=== PATIENT | female | born 1990 | race Caucasian/White ===

== ENCOUNTER 2020-09-19 18:14 | Emergency (ER) | payer MEDICAID ==
[~2020-09-19] VITALS: Ht 162.6 cm; Wt 100.0 kg
[~2020-09-19 18:14] MED LIST: ABILIFY 10MG TA10 MG PO; ABILIFY20 MG; ABILIFY20 MG PO; CELEXA40 MG PO; COGENTIN; DEPAKENE250 MG PO; DEPAKOTE ER 25250 MG PO; DEPAKOTE500 MG PO; FANAPT4 MG PO; GEODON 40MG40 MG PO; INVEGA PO; INVEGA9 MG IM; KLONOPIN 0.5MG0.5 MG PO; KLONOPIN WAFER0.5 MG PO; LAMICTAL 100MG100 MG PO; LAMICTAL200 MG PO; LATUDA80 MG PO; LEXAPRO 5MG5 MG; LEXAPRO20 MG PO; MINIPRESS 1M1 MG/CAP PO; MIRTAZAPINE7.5 MG; PRISTIQ 50 MG T50 MG PO; PROZAC 10MG10 MG PO; PROZAC 20MG20 MG PO; REVIA 50MG TABL50 MG PO; RISPERDAL; SEROQUEL 2525 MG/TAB PO; SEROQUEL300 MG PO; TYLENOL COLD &240 M1; UNABLE; ZOLOFT 25MG25 MG; ZOLOFT100 MG PO; ZYPREXA 5MG5 MG PO; ZYPREXA ZYDIS5 M1 PO; ZYPREXA10 MG PO; [UNRECOGNIZED DRUG - OTHER] PO; symbalta
[2020-09-19 18:23] VITALS: TEMP 98.3
[2020-09-19] MEDS ORDERED: CEPHALEXIN500 M1 PO (19:17)
[2020-09-19 20:02] VITALS: BP 129/78; PULSE 89
== END 2020-09-19 20:05 | disposition home or self-care (01) ==
LOC: COL.ER 18:14
DX: B35.1 Tinea unguium (principal); L03.032 Cellulitis of left toe; F32.9 Major depressive disorder, single episode, unspecified; Z79.899 Other long term (current) drug therapy

== ENCOUNTER 2020-10-28 00:27 | Emergency (ER) | payer MEDICAID ==
[~2020-10-28] VITALS: Ht 162.6 cm; Wt 90.9 kg
[~2020-10-28 00:27] MED LIST changes: +CEPHALEXIN500 M1 PO
[2020-10-28 00:46] VITALS: TEMP 97
[2020-10-28 01:07] LABS: COLLECTION METHOD CLEAN CATCH
[2020-10-28 01:19] LABS: MUCOUS Present /lpf; PH 5 (5-8); SQUAMOUS EPITHELIAL 0-2 /hpf; URINE APPEARANCE Hazy; URINE BACTERIA Rare /hpf; URINE BILIRUBIN Negative (NEGATIVE); URINE BLOOD Negative (NEGATIVE); URINE CALCIUM OXALATE CRYSTAL Present /hpf; URINE COLOR Yellow; URINE GLUCOSE Negative (NEGATIVE); URINE KETONE 1+ (NEGATIVE); URINE LEUKOCYTE ESTERASE Negative (NEGATIVE); URINE NITRATE Negative (NEGATIVE); URINE PROTEIN(semi-quant) Negative (NEGATIVE); URINE UROBILINOGEN Negative (NEGATIVE)
[2020-10-28 01:20] LABS: TRICYCLIC ANTIDEPRESS URINE NEGATIVE
[2020-10-28 01:20] LABS: BASO # 0.1 (0.0-0.2); BASO % 0.9 % (0.0-2.0); EOS % 0.4 % (0-4.0); GRAN # 6.9 (1.4-6.5); GRAN % 65.7 % (42.2-75.2); HEMATOCRIT 46.5 % (37.0-47.0); HEMOGLOBIN 15.6 g/dl (12.5-16.0); LYMPH # 2.8 (1.2-3.4); LYMPH % 26.1 % (20.0-51.0); MEAN CELL VOLUME 86 fl (80.0-100.0); MEAN CORPUSCULAR HEMOGLOBIN 29 pg (27.0-31.0); MEAN CORPUSCULAR HGB CONC 34 g/dl (33.0-37.0); MEAN PLATELET VOLUME 10.6 fl (7.4-10.4); MONO # 0.7 (0.1-0.6); MONO % 6.5 % (1.7-9.3); PLATELET COUNT 338 K/mm3 (130-400); RED BLOOD COUNT 5.39 M/mm3 (4.10-5.30); REDCELL DISTRIBUTION WIDTH-CV 12.4 % (11.5-14.5)
[2020-10-28 01:32] LABS: ALANINE AMINOTRANSFERASE 38 U/L (4-34); ALBUMIN 5.1 gm/dL (3.5-5.0); ALKALINE PHOSPHATASE 95 U/L (50-136); ANION GAP 16 mmol/L (7-16); AST,SGOT 30 U/L (15-37); BILIRUBIN,TOTAL 0.5 mg/dL (0.0-1.0); BLOOD UREA NITROGEN 12 mg/dL (7-17); CALCIUM 10.1 mg/dL (8.4-10.2); CARBON DIOXIDE 22 mmol/L (22-30); CHLORIDE 104 mmol/L (98-107); CREATININE, serum 0.87 (0.52-1.25); GLUCOSE 137 mg/dL (74-106); POTASSIUM 3.8 mmol/L (3.4-5.0); SODIUM 141 mmol/L (137-145); TOTAL PROTEIN 9.5 gm/dL (6.4-8.2)
[2020-10-28 01:34] LABS: ACETAMINOPHEN < 10 ug/mL (10-30); ALCOHOL(ethanol),MEDICAL < 10 mg/dL; SALICYLATE < 1.0 mg/dL
[2020-10-28 06:43] VITALS: BP 109/77; PULSE 88
== END 2020-10-28 06:43 ==
LOC: COL.ER 00:27
PROVIDERS: Emergency Medicine
DX: R45.851 Suicidal ideations (principal); F32.9 Major depressive disorder, single episode, unspecified; Z23 Encounter for immunization; Z20.822 Contact with and (suspected) exposure to COVID-19; Z79.899 Other long term (current) drug therapy

== ENCOUNTER 2021-07-14 13:42 | Emergency (ER) | payer MEDICAID ==
[~2021-07-14] VITALS: Ht 162.6 cm; Wt 93.2 kg
[2021-07-14 13:53] VITALS: TEMP 98.3
[2021-07-14 14:18] LABS: COLLECTION METHOD CLEAN CATCH
[2021-07-14 14:23] LABS: BASO # 0.1 K/mm3 (0.0-0.2); EOS # 0.1 K/mm3 (0.0-0.7); EOS % 0.8 % (0.0-4.0); GRAN # 6.5 K/mm3 (1.4-6.5); GRAN % 67.3 % (42.2-75.2); HEMATOCRIT 43.3 % (37.0-47.0); HEMOGLOBIN 14.8 g/dl (12.5-16.0); LYMPH # 2.5 K/mm3 (1.2-3.4); LYMPH % 25.8 % (20.0-51.0); MEAN CELL VOLUME 85 fl (80.0-100.0); MEAN CORPUSCULAR HEMOGLOBIN 29 pg (27-31); MEAN CORPUSCULAR HGB CONC 34 g/dl (33.0-37.0); MEAN PLATELET VOLUME 10.1 fl (7.4-10.4); MONO # 0.5 K/mm3 (0.1-0.6); MONO % 4.8 % (1.7-9.3); PLATELET COUNT 385 K/mm3 (130-400); RED BLOOD COUNT 5.12 M/mm3 (4.10-5.30); REDCELL DISTRIBUTION WIDTH-CV 12.3 % (11.5-14.5)
[2021-07-14 14:35] LABS: BUDDING YEAST Present (NOT PRESENT); MUCOUS Present (NOT PRESENT); PH 5 (5-8); URINE APPEARANCE Cloudy (CLEAR/HAZY); URINE BACTERIA Rare /hpf (NONE SEEN); URINE BILIRUBIN Negative (NEGATIVE); URINE BLOOD 3+ (NEGATIVE); URINE COLOR Amber (YELLOW); URINE GLUCOSE Negative (NEGATIVE); URINE KETONE Negative (NEGATIVE); URINE LEUKOCYTE ESTERASE Negative (NEGATIVE); URINE NITRATE Negative (NEGATIVE); URINE PROTEIN(semi-quant) 1+ (NEGATIVE); URINE RBC >50 /hpf (0-2); URINE UROBILINOGEN Negative (NEGATIVE)
[2021-07-14 14:42] LABS: ALBUMIN 4.4 gm/dL (3.5-5.0); BILIRUBIN,TOTAL 0.8 mg/dL (0.2-1.2); CALCIUM 9.6 mg/dL (8.4-10.2); CREATININE, serum 1.02 mg/dL (0.57-1.11); POTASSIUM 4.1 mmol/L (3.5-4.5); TOTAL PROTEIN 8.4 gm/dL (6.2-8.1)
[2021-07-14] MEDS ORDERED: NORCO 325 MG-51 TAB PO (16:10)
[2021-07-14] MEDS ORDERED: ZOFRAN ODT4 MG PO (16:11)
[2021-07-14 16:32] VITALS: BP 118/62; PULSE 70
== END 2021-07-14 16:32 | disposition home or self-care (01) ==
LOC: COL.ER 13:42
PROVIDERS: Nurse Practitioner
DX: N20.1 Calculus of ureter (principal); Z28.310 Unvaccinated for COVID-19; Z32.02 Encounter for pregnancy test, result negative
CPT/HCPCS: J1885; J7030

== ENCOUNTER 2021-10-23 16:44 | Emergency (ER) | payer MEDICAID ==
[~2021-10-23] VITALS: Ht 165.1 cm; Wt 90.9 kg
[~2021-10-23 16:44] MED LIST changes: +NORCO 325 MG-51 TAB PO; +ZOFRAN ODT4 MG PO
[2021-10-23 16:59] VITALS: TEMP 98.3
[2021-10-23 17:16] LABS: COLLECTION METHOD CLEAN CATCH
[2021-10-23 17:28] LABS: URINE APPEARANCE Hazy (CLEAR/HAZY); URINE BLOOD Negative (NEGATIVE); URINE COLOR Yellow (YELLOW); URINE GLUCOSE Negative (NEGATIVE); URINE KETONE Negative (NEGATIVE); URINE NITRATE Negative (NEGATIVE); URINE PROTEIN(semi-quant) Negative (NEGATIVE); URINE UROBILINOGEN 0.2 E.U/dL (0.2-1.0)
[2021-10-23 17:43] LABS: TRICYCLIC ANTIDEPRESS URINE NEGATIVE
[2021-10-23 17:48] LABS: BASO # 0.1 K/mm3 (0.0-0.2); BASO % 0.7 % (0.0-2.0); EOS # 0.1 K/mm3 (0.0-0.7); EOS % 0.5 % (0.0-4.0); GRAN # 6.7 K/mm3 (1.4-6.5); HEMATOCRIT 41.7 % (37.0-47.0); HEMOGLOBIN 14.1 g/dl (12.5-16.0); LYMPH # 1.9 K/mm3 (1.2-3.4); LYMPH % 20.1 % (20.0-51.0); MEAN CELL VOLUME 85 fl (80.0-100.0); MEAN CORPUSCULAR HEMOGLOBIN 29 pg (27-31); MEAN CORPUSCULAR HGB CONC 34 g/dl (33.0-37.0); MEAN PLATELET VOLUME 10.5 fl (7.4-10.4); MONO # 0.6 K/mm3 (0.1-0.6); MONO % 6.6 % (1.7-9.3); PLATELET COUNT 356 K/mm3 (130-400); RED BLOOD COUNT 4.89 M/mm3 (4.10-5.30); REDCELL DISTRIBUTION WIDTH-CV 12.5 % (11.5-14.5)
[2021-10-23 18:01] LABS: ACETAMINOPHEN < 1.0 ug/mL (10-30); ALANINE AMINOTRANSFERASE 76 U/L (0-55); ALBUMIN 4.4 gm/dL (3.5-5.0); ALCOHOL(ethanol),MEDICAL < 10 mg/dL (0-10); ALKALINE PHOSPHATASE 93 U/L (40-150); ANION GAP 15 mmol/L (7-16); AST,SGOT 60 U/L (5-34); BILIRUBIN,TOTAL 0.8 mg/dL (0.2-1.2); BLOOD UREA NITROGEN 8 mg/dL (7-19); CALCIUM 9.8 mg/dL (8.4-10.2); CARBON DIOXIDE 21 mmol/L (22-29); CHLORIDE 105 mmol/L (98-107); CREATININE, serum 0.95 mg/dL (0.57-1.11); GLUCOSE 105 mg/dL (70-99); POTASSIUM 3.8 mmol/L (3.5-4.5); SALICYLATE < 5.0 mg/dL (15.0-30.0); SODIUM 141 mmol/L (136-145); TOTAL PROTEIN 8.1 gm/dL (6.2-8.1)
[2021-10-23 18:02] LABS: MUCOUS Present (NOT PRESENT); URINE BACTERIA Rare /hpf (NONE SEEN); URINE RBC 0-2 /hpf (0-2)
[2021-10-24 08:15] VITALS: BP 116/80; PULSE 80
== END 2021-10-24 08:24 ==
LOC: COL.ER 16:44
PROVIDERS: Physician Assistant
DX: R45.851 Suicidal ideations (principal); Z20.822 Contact with and (suspected) exposure to COVID-19; Z28.310 Unvaccinated for COVID-19

== ENCOUNTER 2023-03-09 11:25 | Emergency (ER) | payer MEDICAID ==
[~2023-03-09] VITALS: Ht 165.1 cm; Wt 90.9 kg
[~2023-03-09 11:25] MED LIST changes: +BRINTELLIX20 PO; +BUSPAR DIVIDOSE15 MG PO; +COGENTIN 1MG1 MG/TAB PO
[2023-03-09 11:42] VITALS: TEMP 97.5
[2023-03-09 14:12] LABS: COLLECTION METHOD CLEAN CATCH
[2023-03-09 14:24] LABS: URINE APPEARANCE Clear (CLEAR/HAZY); URINE BLOOD Negative (NEGATIVE); URINE COLOR Yellow (YELLOW); URINE GLUCOSE Negative (NEGATIVE); URINE KETONE Negative (NEGATIVE); URINE NITRATE Negative (NEGATIVE); URINE PROTEIN(semi-quant) Negative (NEGATIVE); URINE UROBILINOGEN 0.2 E.U/dL (0.2-1.0)
[2023-03-09 14:32] LABS: SQUAMOUS EPITHELIAL 0-2 /hpf (0-10); URINE BACTERIA Moderate /hpf (NONE SEEN); URINE RBC 0-2 /hpf (0-2)
[2023-03-09] MEDS ORDERED: MACROBID 1100 MG/CAP PO (14:36)
[2023-03-09 14:53] VITALS: BP 110/60; PULSE 97
== END 2023-03-09 14:53 | disposition home or self-care (01) ==
LOC: COL.ER 11:25
PROVIDERS: Physician Assistant
DX: N39.0 Urinary tract infection, site not specified (principal); Z88.0 Allergy status to penicillin

== ENCOUNTER → 2023-03-17 | Outpatient (CLI) | payer MEDICAID ==
[~2023-03-17] MED LIST changes: +MACROBID 1100 MG/CAP PO
== END ==
LOC: COL.LAB 09:33
PROVIDERS: Nurse Practitioner Psychiatric/Mental Health
DX: F25.1 Schizoaffective disorder, depressive type (principal)

== ENCOUNTER → 2023-03-20 | Outpatient (CLI) | payer MEDICAID ==
[2023-03-20 09:25] LABS: ALBUMIN 3.8 gm/dL (3.5-5.0); BILIRUBIN,TOTAL 0.6 mg/dL (0.2-1.2); CALCIUM 9.4 mg/dL (8.4-10.2); CHOLESTEROL RISK RATIO 6.4; CREATININE, serum 0.99 mg/dL (0.57-1.11); POTASSIUM 4.1 mmol/L (3.5-4.5); TOTAL PROTEIN 7.7 gm/dL (6.2-8.1)
[2023-03-20 09:29] LABS: BILIRUBIN,DIRECT 0.2 mg/dL (0.0-0.5)
== END ==
LOC: COL.LAB 08:17
PROVIDERS: Nurse Practitioner Psychiatric/Mental Health
DX: F25.1 Schizoaffective disorder, depressive type (principal)

== ENCOUNTER 2023-10-08 03:39 | Emergency (ER) | payer MEDICAID ==
[~2023-10-08] VITALS: Ht 162.6 cm; Wt 97.3 kg
[2023-10-08 03:48] VITALS: BP 111/76; TEMP 98.1
[2023-10-08] MEDS ORDERED: Ketorolac 30 MG/ML VIAL IM ONE (04:00)
[2023-10-08 04:32] VITALS: PULSE 93
[2023-10-09] MEDS ORDERED: PERIACTIN 4MG TA4 MG PO (02:39)
[2023-10-09] MEDS ORDERED: COGENTIN .0.5 MG/TAB PO (02:40)
[2023-10-09] MEDS ORDERED: HALOPERIDOL 10 MG (02:41)
[2023-10-09] MEDS ORDERED: PROZAC 20MG20 MG PO (02:41)
[2023-10-09] MEDS ORDERED: SEROQUEL50 MG PO (02:42)
[2023-10-09] MEDS ORDERED: MINIPRESS 1M1 MG/CAP PO (02:42)
== END 2023-10-08 04:36 | disposition home or self-care (01) ==
LOC: COL.ER 03:39
DX: S02.5XXA Fracture of tooth (traumatic), initial encounter for closed fracture (principal); X58.XXXA Exposure to other specified factors, initial encounter
CPT/HCPCS: J1885

== ENCOUNTER 2023-10-08 23:32 | Emergency (ER) | payer MEDICAID ==
[~2023-10-08] VITALS: Ht 162.6 cm; Wt 97.3 kg
[2023-10-08 23:48] VITALS: TEMP 98.1
[2023-10-09 00:15] LABS: COLLECTION METHOD CLEAN CATCH
[2023-10-09 00:32] LABS: BASO # 0.1 K/mm3 (0.0-0.2); BASO % 1.1 % (0.0-2.0); EOS # 0.2 K/mm3 (0.0-0.7); EOS % 1.5 % (0.0-4.0); GRAN # 7.4 K/mm3 (1.4-6.5); GRAN % 65.6 % (42.2-75.2); HEMATOCRIT 40.3 % (37.0-47.0); HEMOGLOBIN 13.8 g/dl (12.5-16.0); LYMPH % 26.2 % (20.0-51.0); MEAN CELL VOLUME 84 fl (80.0-100.0); MEAN CORPUSCULAR HEMOGLOBIN 29 pg (27-31); MEAN CORPUSCULAR HGB CONC 34 g/dl (33.0-37.0); MEAN PLATELET VOLUME 9.6 fl (7.4-10.4); MONO # 0.6 K/mm3 (0.1-0.6); MONO % 5.2 % (1.7-9.3); PLATELET COUNT 374 K/mm3 (130-400); RED BLOOD COUNT 4.81 M/mm3 (4.10-5.30); REDCELL DISTRIBUTION WIDTH-CV 12.2 % (11.5-14.5)
[2023-10-09 00:35] LABS: TRICYCLIC ANTIDEPRESS URINE NEGATIVE (NEGATIVE)
[2023-10-09 00:44] LABS: ALANINE AMINOTRANSFERASE 23 U/L (0-55); ALKALINE PHOSPHATASE 85 U/L (40-150); ANION GAP 17 mmol/L (7-16); AST,SGOT 18 U/L (5-34); BILIRUBIN,TOTAL 0.7 mg/dL (0.2-1.2); BLOOD UREA NITROGEN 14 mg/dL (7-19); CALCIUM 9.7 mg/dL (8.4-10.2); CHLORIDE 103 mEq/L (98-107); CREATININE, serum 0.94 mg/dL (0.57-1.11); GLUCOSE 115 mg/dL (70-99); POTASSIUM 3.6 mEq/L (3.5-4.5); SODIUM 138 mEq/L (136-145)
[2023-10-09 00:46] LABS: ALCOHOL(ethanol),MEDICAL < 10 mg/dL (0-10); SALICYLATE < 5.0 mg/dL (15.0-30.0)
[2023-10-09 00:47] LABS: URINE APPEARANCE Hazy (CLEAR/HAZY); URINE COLOR Amber (YELLOW); URINE PROTEIN(semi-quant) TRACE (NEGATIVE)
[2023-10-09 00:48] LABS: URINE BLOOD 3+ (NEGATIVE); URINE GLUCOSE NEGATIVE (NEGATIVE); URINE KETONE NEGATIVE (NEGATIVE); URINE NITRATE NEGATIVE (NEGATIVE); URINE UROBILINOGEN 0.2 E.U/dL (0.2-1.0)
[2023-10-09] MEDS ORDERED: PERIACTIN 4MG TA4 MG PO (02:39)
[2023-10-09] MEDS ORDERED: COGENTIN .0.5 MG/TAB PO (02:40)
[2023-10-09] MEDS ORDERED: HALOPERIDOL 10 MG (02:41)
[2023-10-09] MEDS ORDERED: PROZAC 20MG20 MG PO (02:41)
[2023-10-09] MEDS ORDERED: SEROQUEL50 MG PO (02:42)
[2023-10-09] MEDS ORDERED: MINIPRESS 1M1 MG/CAP PO (02:42)
[2023-10-09 07:07] VITALS: BP 132/78; PULSE 94
[2023-10-09] MEDS ORDERED: Haloperidol 5 MG TAB PO SCH (09:00)
[2023-10-09] MEDS ORDERED: FLUoxetine 20 MG CAP PO SCH (09:00)
[2023-10-09] MEDS ORDERED: Benztropine 1 MG TAB PO SCH (09:00)
[2023-10-09] MEDS ORDERED: Cyproheptadine 4 MG TAB PO SCH (09:00)
[2023-10-09] MEDS ORDERED: Prazosin 1 MG CAP PO SCH (21:00)
[2023-10-09] MEDS ORDERED: QUEtiapine 25 MG TAB PO SCH (21:00)
== END 2023-10-09 07:07 ==
LOC: COL.ER 23:32
PROVIDERS: Nurse Practitioner
DX: R45.851 Suicidal ideations (principal); Z86.59 Personal history of other mental and behavioral disorders

== ENCOUNTER 2023-10-18 10:55 | Emergency (ER) | payer MEDICAID ==
[~2023-10-18] VITALS: Ht 162.6 cm; Wt 97.3 kg
[~2023-10-18 10:55] MED LIST changes: +COGENTIN .0.5 MG/TAB PO; +HALOPERIDOL 10 MG; +PERIACTIN 4MG TA4 MG PO; +SEROQUEL50 MG PO
[2023-10-18] MEDS ORDERED: NS 1,000 ML IV ONE (11:15)
[2023-10-18] MEDS ORDERED: Ondansetron 4 MG/2 ML VIAL IV ONE (11:30)
[2023-10-18 11:56] LABS: COLLECTION METHOD CLEAN CATCH
[2023-10-18 12:01] LABS: BASO # 0.1 K/mm3 (0.0-0.2); BASO % 0.6 % (0.0-2.0); EOS # 0.1 K/mm3 (0.0-0.7); EOS % 0.9 % (0.0-4.0); GRAN # 6.6 K/mm3 (1.4-6.5); GRAN % 57.1 % (42.2-75.2); HEMOGLOBIN 14.4 g/dl (12.5-16.0); LYMPH # 3.9 K/mm3 (1.2-3.4); LYMPH % 33.7 % (20.0-51.0); MEAN CELL VOLUME 87 fl (80.0-100.0); MEAN CORPUSCULAR HEMOGLOBIN 29 pg (27-31); MEAN CORPUSCULAR HGB CONC 34 g/dl (33.0-37.0); MEAN PLATELET VOLUME 10.6 fl (7.4-10.4); MONO # 0.8 K/mm3 (0.1-0.6); PLATELET COUNT 380 K/mm3 (130-400); RED BLOOD COUNT 4.97 M/mm3 (4.10-5.30); REDCELL DISTRIBUTION WIDTH-CV 12.5 % (11.5-14.5)
[2023-10-18 12:08] LABS: PH 5.5 (5.0-8.5); URINE APPEARANCE CLEAR (CLEAR/HAZY); URINE BLOOD NEGATIVE (NEGATIVE); URINE COLOR YELLOW (YELLOW); URINE GLUCOSE NEGATIVE (NEGATIVE); URINE KETONE TRACE (NEGATIVE); URINE NITRATE NEGATIVE (NEGATIVE); URINE PROTEIN(semi-quant) 1+ (NEGATIVE)
[2023-10-18 12:09] LABS: ALANINE AMINOTRANSFERASE 19 U/L (0-55); ALBUMIN 4.1 g/dL (3.5-5.0); ALCOHOL(ethanol),MEDICAL < 10 mg/dL (0-10); ALKALINE PHOSPHATASE 99 U/L (40-150); ANION GAP 14 mmol/L (7-16); AST,SGOT 15 U/L (5-34); BILIRUBIN,TOTAL 0.5 mg/dL (0.2-1.2); BLOOD UREA NITROGEN 10 mg/dL (7-19); CALCIUM 9.7 mg/dL (8.4-10.2); CHLORIDE 104 mEq/L (98-107); CREATININE, serum 0.88 mg/dL (0.57-1.11); GLUCOSE 130 mg/dL (70-99); POTASSIUM 3.6 mEq/L (3.5-4.5); SALICYLATE < 5.0 mg/dL (15.0-30.0); SODIUM 138 mEq/L (136-145); TOTAL PROTEIN 8.3 g/dl (6.2-8.1)
[2023-10-18 12:18] LABS: TRICYCLIC ANTIDEPRESS URINE NEGATIVE (NEGATIVE)
[2023-10-19 09:04] VITALS: BP 118/55; PULSE 111; TEMP 98.1
== END 2023-10-19 09:09 ==
LOC: COL.ER 10:55
PROVIDERS: Physician Assistant
DX: T45.0X2A Poisoning by antiallergic and antiemetic drugs, intentional self-harm, initial encounter (principal); T43.212A Poisoning by selective serotonin and norepinephrine reuptake inhibitors, intentional self-harm, initial encounter; R11.10 Vomiting, unspecified
CPT/HCPCS: J2405; J7030